=== PATIENT | female | born 1945 | race Caucasian/White ===

== ENCOUNTER 2024-07-21 03:14 | Inpatient (IN) | payer OTHER ==
[2024-07-21 05:01] VITALS: BMI 34.8
[2024-07-21] MEDS ORDERED: Acetaminophen 325 MG TAB PO PRN (06:11)
[2024-07-21] MEDS ORDERED: Ondansetron PF 4 MG/2 ML Vial IVP PRN (06:11)
[2024-07-21 06:58] LABS: #Basophils 0.03 10x3/uL (0.0-0.2); %Basophils 0.5 % (0.0-1.0); %Eosinophils 3.2 % (0.0-10.0); %Monocytes 7.1 % (0.0-10.0); %Neutrophils 53.9 % (42.0-75.0); Hematocrit 37.4 % (36.0-47.0); Hemoglobin 12.2 g/dL (12.0-16.0); Mean Corpuscular HGB CONC 32.6 g/dL (32.0-36.0); Mean Corpuscular Hemoglobin 28.8 pg (27.0-31.0); Mean Corpuscular Volume 88.2 fL (78.0-98.0); Mean Platelet Volume 9.9 fL (7.4-10.4); Platelet Count 230 10x3/uL (130-400); RBC Distribution Width 12.6 % (11.5-14.5); Red Blood Cell (RBC) Count 4.24 mill/uL (4.20-5.40)
[2024-07-21 07:19] LABS: Anion Gap 13 mmol/L (10-20); BUN (Urea Nitrogen) 24 mg/dL (9.8-20.1); Calc. Creatinine Clearance 78 mL/min (70-130); Calcium 10.3 mg/dL (7.8-10.44); Carbon Dioxide 24 mmol/L (23-31); Chloride 107 mmol/L (98-107); Estimated GFR 74; Glucose 105 mg/dL (83-110); Potassium 4.2 mmol/L (3.5-5.1); Sodium 140 mmol/L (136-145)
[2024-07-21] MEDS ORDERED: Non-Formulary Item 1 EACH (Omeprazole [Omeprazole] 20 MG Capsule.Dr) PO SCH (09:00)
[2024-07-21] MEDS ORDERED: Non-Formulary Item 1 EACH (Multivit-Min/Iron/Folic/Lutein [Centrum Silver Women] 1 TABLET PO SCH (09:00)
[2024-07-21] MEDS ORDERED: Non-Formulary Item 1 EACH (Folic Acid [Folic Acid] 0.4 MG Tablet) PO SCH (09:00)
[2024-07-21] MEDS: Cephalexin 250 MG CAP PO SCH (09:26)
[2024-07-21] MEDS: Gabapentin 300 MG CAP PO SCH (09:26)
[2024-07-21] MEDS: Montelukast Sodium 10 mg Tablet PO SCH (09:26)
[2024-07-21] MEDS: Multivitamin W/ Minerals 1 TAB PO SCH (09:26)
[2024-07-21] MEDS: Aspirin 81 mg Enteric Coated Tablet PO SCH (09:27)
[2024-07-21] MEDS: Pantoprazole 40 MG DR.TAB PO SCH (09:27)
[2024-07-21] MEDS: Folic Acid 1 MG TAB PO SCH (09:27)
[2024-07-21] MEDS: Clopidogrel Bisulfate 75 MG TAB PO SCH (09:27)
[2024-07-21] MEDS: Rosuvastatin 20 MG TAB PO SCH (09:28)
[2024-07-21] MEDS ORDERED: Dextrose 5% in Water 1,000 ML IV PRN (09:52)
[2024-07-21] MEDS ORDERED: Insulin Lispro 100 UNIT/ML 10 ML VIAL SC PRN ×2 (09:52)
[2024-07-21] MEDS ORDERED: Dextrose 50% Abboject 50 ML SYRINGE SLOW IVP PRN (09:52)
[2024-07-21] MEDS ORDERED: Glucagon 1 MG/ML KIT IM PRN (09:52)
[2024-07-21] MEDS: Enoxaparin 40 MG (0.4 mL) SYRINGE SC SCH (11:57)
[2024-07-21] MEDS: Carvedilol 25 MG TAB PO SCH (22:01)
[2024-07-22 04:21] LABS: #Basophils 0.04 10x3/uL (0.0-0.2); %Basophils 0.6 % (0.0-1.0); %Eosinophils 3.6 % (0.0-10.0); %Lymphocytes 36.6 % (21.0-51.0); %Monocytes 9.3 % (0.0-10.0); %Neutrophils 49.6 % (42.0-75.0); Hematocrit 35.6 % (36.0-47.0); Hemoglobin 11.7 g/dL (12.0-16.0); Mean Corpuscular HGB CONC 32.9 g/dL (32.0-36.0); Mean Corpuscular Hemoglobin 28.7 pg (27.0-31.0); Mean Corpuscular Volume 87.5 fL (78.0-98.0); Platelet Count 214 10x3/uL (130-400); RBC Distribution Width 12.7 % (11.5-14.5); Red Blood Cell (RBC) Count 4.07 mill/uL (4.20-5.40)
[2024-07-22 04:53] LABS: Hemoglobin A1c 6.1 % (4.0-6.0)
[2024-07-22 04:59] LABS: Anion Gap 14 mmol/L (10-20); BUN (Urea Nitrogen) 27 mg/dL (9.8-20.1); Calc. Creatinine Clearance 79 mL/min (70-130); Calcium 9.2 mg/dL (7.8-10.44); Carbon Dioxide 21 mmol/L (23-31); Cardiac Risk 3.3 (Less than 4.5); Chloride 108 mmol/L (98-107); Cholesterol 108 mg/dl (< 200 Desired); Estimated GFR 75; Glucose 107 mg/dL (83-110); HDL Cholesterol 33 mg/dL (>60 Neg Risk); LDL Cholesterol, Calculated 51 mg/dL; Potassium 3.8 mmol/L (3.5-5.1); Sodium 139 mmol/L (136-145); Triglycerides 121 mg/dL (Less than 150)
[2024-07-22] MEDS ORDERED: Electrolyte Replacement Protocol 1 EACH FS SCH (08:13)
[2024-07-22] MEDS: Enoxaparin 40 MG (0.4 mL) SYRINGE SC SCH (08:56)
[2024-07-22] MEDS: Amlodipine 5 MG TAB PO SCH ×2 (08:58→21:11)
[2024-07-22] MEDS: Spironolactone 25 MG TAB PO SCH (08:58)
[2024-07-22 09:35] LABS: Magnesium 1.6 mg/dL (1.6-2.6)
[2024-07-22] MEDS: Magnesium 2 GM/50 ML(in water) 2 GM in Premix 1 BAG IVPB SCH (14:28)
[2024-07-22] MEDS ORDERED: Atropine Sulfate 1 mg/10 ml Syringe IVP PRN (17:05)
[2024-07-22] MEDS ORDERED: Ipratropium/Albuterol 3 ML NEB NEB PRN (21:55)
[2024-07-23 04:36] LABS: #Basophils 0.04 10x3/uL (0.0-0.2); %Basophils 0.6 % (0.0-1.0); %Eosinophils 3.8 % (0.0-10.0); %Lymphocytes 37.2 % (21.0-51.0); %Monocytes 8.7 % (0.0-10.0); %Neutrophils 49.6 % (42.0-75.0); Hematocrit 34.1 % (36.0-47.0); Hemoglobin 11.3 g/dL (12.0-16.0); Mean Corpuscular HGB CONC 33.1 g/dL (32.0-36.0); Mean Corpuscular Hemoglobin 28.9 pg (27.0-31.0); Mean Corpuscular Volume 87.2 fL (78.0-98.0); Mean Platelet Volume 10.2 fL (7.4-10.4); Platelet Count 198 10x3/uL (130-400); RBC Distribution Width 12.5 % (11.5-14.5); Red Blood Cell (RBC) Count 3.91 mill/uL (4.20-5.40)
[2024-07-23 04:46] LABS: Anion Gap 12 mmol/L (10-20); BUN (Urea Nitrogen) 25 mg/dL (9.8-20.1); Calc. Creatinine Clearance 70 mL/min (70-130); Calcium 9.3 mg/dL (7.8-10.44); Carbon Dioxide 22 mmol/L (23-31); Chloride 107 mmol/L (98-107); Estimated GFR 65; Glucose 111 mg/dL (83-110); Magnesium 1.8 mg/dL (1.6-2.6); Potassium 4.1 mmol/L (3.5-5.1); Sodium 137 mmol/L (136-145)
[2024-07-23] MEDS: Magnesium 2 GM/50 ML(in water) 2 GM in Premix 1 BAG IVPB SCH (08:18)
[2024-07-23] MEDS: Heparin 5,000 UNITS/ML VIAL SC SCH (08:22)
[2024-07-23] MEDS ORDERED: hydrALAZINE 25 MG TAB PO PRN (14:08)
[2024-07-23 16:40] VITALS: TEMP 97.7
[2024-07-23 17:37] VITALS: BP 106/59
[2024-07-23] MEDS: Carvedilol 6.25 MG TAB PO SCH (17:37)
[2024-07-24] MEDS ORDERED: Amlodipine 5 MG TAB PO SCH (09:00)
== END 2024-07-23 20:00 | disposition home or self-care (01) | DRG 69 ==
LOC: 2SE 03:14 → OBSVTOIN 07-22 16:54
PROVIDERS: ADMIT Internal Medicine; ATTEND Internal Medicine
DX: G45.8 Other transient cerebral ischemic attacks and related syndromes (principal); N39.0 Urinary tract infection, site not specified; I10 Essential (primary) hypertension; E78.5 Hyperlipidemia, unspecified; R00.1 Bradycardia, unspecified; E11.9 Type 2 diabetes mellitus without complications; E87.6 Hypokalemia; E83.42 Hypomagnesemia; J45.909 Unspecified asthma, uncomplicated; K21.9 Gastro-esophageal reflux disease without esophagitis; Z79.82 Long term (current) use of aspirin; Z79.899 Other long term (current) drug therapy; Z88.8 Allergy status to other drugs, medicaments and biological substances; M19.90 Unspecified osteoarthritis, unspecified site; Z90.49 Acquired absence of other specified parts of digestive tract; Z90.710 Acquired absence of both cervix and uterus; E66.9 Obesity, unspecified
CPT/HCPCS: 36415; 36416; 70551; 80048; 80061; 83036; 83735; 84443; 85025; 93306; 96372; 96374; G0378; J1644; J1650; J3475